=== PATIENT | male | born 1995 | race Caucasian/White ===

== ENCOUNTER 2016-12-01 11:14 | Emergency (ER) | payer OTHER ==
[~2016-12-01] VITALS: Ht 172.7 cm; Wt 71.3 kg
[~2016-12-01 11:14] MED LIST: CIPR-255 PO
[2016-12-01 11:27] VITALS: TEMP 36.7
[2016-12-01] MEDS ORDERED: SODIUM CHLORIDE 0.9% 1000ML 1,000 ML IV STA (11:56)
--- NOTE | 2016-12-01 12:05 | EMERGENCY ROOM VISIT NOTE ---
History Report prepared by Artemio: Robbie Simon Under the Supervision of: Dr. Mann Murrieta D.O. First contact with patient: 11:52 Chief Complaint: DIZZY Stated Complaint: LIGHTHEADED, NUMBNESS HARD TO BREATHE Nursing Triage Summary: Triage note: "I have had dizzy episodes for a few weeks, yesterday it was worse and at one time, my whole body felt numb - this lasted a few hours." per pt. Pt also states he felt short of breath since walking yesterday, "it was like a shot in my back and I have had trouble taking deep breaths since." per pt. Complains of slight frontal headache that just started upon arrival to the ER. History of Present Illness The patient is a 21 year old male who presents to the Emergency Room with complaints of constant dizziness starting yesterday. The patient states that yesterday he was walking down the road, and it felt like he got shot in the right back, he was having difficulty breathing. The he states that he was at a basketball game last night, and he felt lightheaded and dizzy. The patient additionally said that when he was trying to fall asleep last night his entire body went numb for a couple of hours. The patient denies any chest pain, nausea , vomiting, cough, abdominal pain, swelling in his legs, or diarrhea. The patient additionally denies any recent travel, history of clots, history of surgeries, or any daily medication. The patient states that he drinks one beer per day. He states that his grandparents had some heart troubles. Source of History: patient Onset: yesterday Position: other (global) Quality: other (dizziness) Timing: constant Associated Symptoms: + SOB, + back pain, + numbness, No abdominal pain, No chest pain, No cough, No diarrhea, No nausea, No vomiting Review of Systems See HPI for pertinent positives & negatives. A total of 10 systems reviewed and were otherwise negative. Past Medical & Surgical Medical Problems: (1) Tourette disease Family History Cancer Diabetes mellitus Heart disease Hypertension Kidney disease Kidney stones Lung disease Social History Smoking Status: Never Smoker Alcohol Use: occasionally Housing Status: lives with family Occupation Status: employed Current/Historical Medications No Active Prescriptions or Reported Meds Allergies Coded Allergies: Amoxicillin (Verified Adverse Reaction, Unknown, vomiting; diarrhea, ) Clavulanic Acid (Verified Adverse Reaction, Unknown, vomiting; diarrhea, ) Guaifenesin (Verified Adverse Reaction, Unknown, dizzy, 12/01/16) Physical Exam Vital Signs Date Time Temp Pulse Resp B/P Pulse Ox O2 Delivery O2 Flow Rate FiO2 12/01/16 14:38 78 119/74 100 12/01/16 13:40 83 16 129/85 99 Room Air 12/01/16 13:14 85 16 116/94 99 Room Air 12/01/16 12:15 92 12/01/16 12:15 99 Room Air 12/01/16 12:15 99 Room Air 12/01/16 11:27 36.7 96 18 146/90 99 Room Air Physical Exam GENERAL: Patient is awake, alert, and in no acute distress. Patient is resting comfortably and showing no signs of anxiety EYES: The conjunctivae are clear. The pupils are round and reactive. EARS, NOSE, MOUTH AND THROAT: The nose is without any evidence of any deformity. Mucous membranes are moist tongue is midline NECK: The neck is nontender and supple. RESPIRATORY: Normal respiratory effort is noted there is no evidence of wheezing rhonchi or rales CARDIOVASCULAR: Regular rate and rhythm noted there no murmurs rubs or gallops normal S1 normal S2 GASTROINTESTINAL: The abdomen is soft. Bowel sounds are present in all quadrants. Abdomen is nontender MUSCULOSKELETAL/EXTREMITIES: There is no evidence of gross deformity full range of motion is noted in the hips and shoulders SKIN: There is no obvious evidence of any rash. There are no petechiae, pallor or cyanosis noted. NEUROLOGIC: Patient is awake alert and oriented x3 strength is symmetric patellar reflexes are 2+ bilaterally Medical Decision & Procedures ER Provider Diagnostic Interpretation: X-ray results as stated below per interpretation by me and the radiologist. CHEST ONE VIEW PORTABLE CLINICAL HISTORY: Respiratory distress. Dyspnea. COMPARISON STUDY: No previous studies for comparison. FINDINGS: The cardiac and mediastinal contours are normal. There is no evidence of focal pulmonary consolidation. There is no evidence of failure. No pleural effusions are visualized.[ IMPRESSION: No active disease in the chest. Electronically signed by: Asa Monsivais M.D. 12/01/2016 12:32 PM Dictated Date/Time: 12/01/2016 12:32 PM Laboratory Results 12/01/16 12:05 Red Blood Count 5.21, Mean Corpuscular Volume 85.8, Mean Corpuscular Hemoglobin 31.3, Mean Corpuscular Hemoglobin Concent 36.5, Mean Platelet Volume 10.0, Neutrophils (%) (Auto) 70.4, Lymphocytes (%) (Auto) 20.4, Monocytes (%) (Auto) 8.8, Eosinophils (%) (Auto) 0.2, Basophils (%) (Auto) 0.2, Neutrophils # (Auto) 4.19, Lymphocytes # (Auto) 1.21, Monocytes # (Auto) 0.52, Eosinophils # (Auto) 0.01, Basophils # (Auto) 0.01 12/01/16 12:05 Test 12/01/16 12:05 12/01/16 12:25 12/01/16 13:38 White Blood Count 5.94 K/uL (4.8-10.8) Red Blood Count 5.21 M/uL (4.7-6.1) Hemoglobin 16.3 g/dL (14.0-18.0) Hematocrit 44.7 % (42-52) Mean Corpuscular Volume 85.8 fL (80-100) Mean Corpuscular Hemoglobin 31.3 pg (25-34) Mean Corpuscular Hemoglobin Concent 36.5 g/dl (32-36) Platelet Count 224 K/uL (130-400) Mean Platelet Volume 10.0 fL (7.4-10.4) Neutrophils (%) (Auto) 70.4 % Lymphocytes (%) (Auto) 20.4 % Monocytes (%) (Auto) 8.8 % Eosinophils (%) (Auto) 0.2 % Basophils (%) (Auto) 0.2 % Neutrophils # (Auto) 4.19 K/uL (1.4-6.5) Lymphocytes # (Auto) 1.21 K/uL (1.2-3.4) Monocytes # (Auto) 0.52 K/uL (0.11-0.59) Eosinophils # (Auto) 0.01 K/uL (0-0.5) Basophils # (Auto) 0.01 K/uL (0-0.2) RDW Standard Deviation 38.5 fL (36.4-46.3) RDW Coefficient of Variation 12.2 % (11.5-14.5) Immature Granulocyte % (Auto) 0.0 % Immature Granulocyte # (Auto) 0.00 K/uL (0.00-0.02) Prothrombin Time 11.5 SECONDS (9.0-12.0) Prothromb Time International Ratio 1.1 (0.9-1.1) Activated Partial Thromboplast Time 27.5 SECONDS (21.0-31.0) Partial Thromboplastin Ratio 1.1 Anion Gap 8.0 mmol/L (3-11) Est Creatinine Clear Calc Drug Dose 101.0 ml/min Estimated GFR () 109.1 Estimated GFR (Non- 94.1 BUN/Creatinine Ratio 9.3 (10-20) Calcium Level 9.5 mg/dl (8.5-10.1) Total Bilirubin 0.9 mg/dl (0.2-1) Aspartate Amino Transf (AST/SGOT) 30 U/L (15-37) Alanine Aminotransferase (ALT/SGPT) 75 U/L (12-78) Alkaline Phosphatase 73 U/L (45-117) Total Protein 8.4 gm/dl (6.4-8.2) Albumin 4.8 gm/dl (3.4-5.0) Globulin 3.6 gm/dl (2.5-4.0) Albumin/Globulin Ratio 1.3 (0.9-2) Bedside D-Dimer 183 ng/mlFEU (0-450) Bedside Troponin I 0.000 ng/ml (0-0.045) Urine Color YELLOW Urine Appearance CLEAR (CLEAR) Urine pH 6.0 (4.5-7.5) Urine Specific [place] 1.005 (1.000-1.030) Urine Protein NEG (NEG) Urine Glucose (UA) NEG (NEG) Urine Ketones NEG (NEG) Urine Occult Blood NEG (NEG) Urine Nitrite NEG (NEG) Urine Bilirubin NEG (NEG) Urine Urobilinogen NEG (NEG) Urine Leukocyte Esterase NEG (NEG) Laboratory results per my review. Medications Administered Medications (Trade) Dose Ordered Sig/[place]arshall Route Start Time Stop Time Status Last Admin Dose Admin Sodium Chloride (Nss 1000ml) 1,000 ml @ 999 mls/hr Q1H1M STAT IV 12/01/16 11:56 12/01/16 12:56 DC 12/01/16 12:18 999 MLS/HR ECG Indication: other (dizziness) Rate (beats per minute): 93 Rhythm: normal sinus Findings: no ectopy, other (No ST abnormality) Comparison ECG Date: no prior available ED Course 1152: The patient was evaluated in room B12. A complete history and physical examination were performed. 1156: NSS 1,000 ml @ 999 mls/hr IV 1432: Upon reevaluation, the patient is resting. I discussed the results and treatment plan with him. He verbalized agreement of the treatment plan. He was discharged home. Medical Decision Differential diagnosis: Etiologies such as benign positional vertigo, dehydration, hypovolemia, anemia, tumor, infection, hypoglycemia, electrolyte abnormalities, cardiac sources, intracerebral event, toxicologic, neurologic, as well as others were entertained. Nursing notes reviewed. The patient is a 21-year-old male who presented to the emergency department with multiple complaints including dizziness posterior chest pain as well as whole body numbness which lasted throughout the evening. The patient was treated with IV fluids in the emergency department. I discussed the patient's laboratory and radiographic studies with him. He had no focal neurologic symptoms. I discussed the patient's follow-up with him. At this time I feel that he can safely follow up with his primary care physician. He was encouraged to rest and avoid any strenuous activity. He was also encouraged to continue all medications as prescribed and return to the emergency department immediately if symptoms change worsen or the need arises. Impression Primary Impression: Dizziness Additional Impression: Posterior chest pain Scribe Attestation The scribe's documentation has been prepared under my direction and personally reviewed by me in its entirety. I confirm that the note above accurately reflects all work, treatment, procedures, and medical decision making performed by me. Departure Information Dispostion Home / Self-Care Prescriptions No Active Prescriptions or Reported Meds Referrals Nomi Garcia M.D. (PCP) Forms HOME CARE DOCUMENTATION FORM, IMPORTANT VISIT INFORMATION, Work Instructions Patient Instructions ED Dizziness O, My [facility] [address] Additional Instructions Call your family to schedule a follow-up appointment for this week. Rest and avoid any strenuous activity. Continue all medications as prescribed. Continue using Motrin and Tylenol as directed for pain. Return to the emergency department if symptoms change worsen or if the need arises. Problem Qualifiers
[2016-12-01 12:15] VITALS: O2SAT 99; Ht 172.7 cm; Wt 71.3 kg
[2016-12-01 12:17] LABS: BASO % 0.2 %; BASO ABS # 0.01 K/uL (0-0.2); COMPLETE YES; EOS % 0.2 %; HEMATOCRIT 44.7 % (42-52); LYMPH % 20.4 %; LYMPH ABS # 1.21 K/uL (1.2-3.4); MEAN CELL VOLUME 85.8 fL (80-100); MEAN CORPUSCULAR HEMOGLOBIN 31.3 pg (25-34); MEAN CORPUSCULAR HGB CONC 36.5 g/dl (32-36); MONO % 8.8 %; NEUT % 70.4 %; PLATELET COUNT 224 K/uL (130-400); RED BLOOD COUNT 5.21 M/uL (4.7-6.1); WHITE BLOOD COUNT 5.94 K/uL (4.8-10.8)
[2016-12-01 12:29] LABS: INR 1.1 (0.9-1.1); PARTIAL THROMBOPLASTIN RATIO 1.1; PROTHROMBIN TIME (PATIENT) 11.5 SECONDS (9.0-12.0)
--- NOTE | 2016-12-01 12:33 | DIAGNOSTIC IMAGING REPORT ---
CHEST ONE VIEW PORTABLE CLINICAL HISTORY: Respiratory distress. Dyspnea. COMPARISON STUDY: No previous studies for comparison. FINDINGS: The cardiac and mediastinal contours are normal. There is no evidence of focal pulmonary consolidation. There is no evidence of failure. No pleural effusions are visualized.[ IMPRESSION: No active disease in the chest. Electronically signed by: Asa Monsivais M.D. 12/01/2016 12:32 PM Dictated Date/Time: 12/01/2016 12:32 PM
[2016-12-01 12:34] LABS: BUN/CREATININE RATIO 9.3 (10-20); CALCIUM 9.5 mg/dl (8.5-10.1); CREATININE 1.1 mg/dl (0.60-1.40); POTASSIUM 3.7 mmol/L (3.5-5.1)
[2016-12-01 12:37] LABS: ALB/GLOB RATIO 1.3 (0.9-2)
[2016-12-01 14:19] LABS: URINE APPEARANCE CLEAR (CLEAR); URINE BILIRUBIN NEG (NEG); URINE COLOR YELLOW; URINE NITRITE NEG (NEG); URINE SPECIFIC GRAVITY 1.005 (1.000-1.030); UROBILINOGEN NEG (NEG)
[2016-12-01 14:23] LABS: MANUAL MICROSCOPIC REQUIRED? NO; REVIEW REQ? NO
[2016-12-01 14:38] VITALS: BP 119/74; PULSE 78; O2SAT 100
== END 2016-12-01 14:39 | disposition home or self-care (01) ==
LOC: C.EDB 11:16
DX: R42 Dizziness and giddiness (principal); R07.9 Chest pain, unspecified; Z80.9 Family history of malignant neoplasm, unspecified; Z83.3 Family history of diabetes mellitus; Z82.49 Family history of ischemic heart disease and other diseases of the circulatory system; Z84.1 Family history of disorders of kidney and ureter; Z88.1 Allergy status to other antibiotic agents